=== PATIENT | male | born 1935 | race African-American/Black ===

== ENCOUNTER 2016-07-15 05:58 | Emergency (ER) | payer MEDICARE, MEDICAID ==
[~2016-07-15] VITALS: Ht 175.3 cm; Wt 95.5 kg
[~2016-07-15 05:58] MED LIST: ACET250T27 PO; ALBU8.5H IH; AMLO-511 PO; ASPI81TA42 PO; BETA10DR OU; BIMA12.5OS OU; BRIM5DRO10 OU; BRINOS OU; BUDE10.22 IH; CARI350 PO; CHL25 PO; DIAZ10 PO; HYDR-3971 PO; LEVO50 PO; LISI-662 PO; METF500T4 PO; MULT-71 PO; OMEP20 PO; PILO4OS OU; SIMV-260 PO; UMEC62.5 PUFF; [UNRECOGNIZED DRUG - CODE] TP
[2016-07-15 06:17] LABS: GLUCOSE,POINT OF CARE 129 MG/DL (70-110)
[2016-07-15] MEDS ORDERED: ACETAMINOPHEN 1000 MG/ISO-OSM 100 ML IV ONE (06:30)
[2016-07-15] MEDS ORDERED: SODIUM CHLORIDE 0.9% 1,000 ML IV ONE ×2 (06:30→08:30)
[2016-07-15 06:58] LABS: BASOPHILS % (AUTO) 0.5 % (0.0-2.0); CALCIUM, TOTAL 9.1 mg/dL (8.8-10.5); CREATININE 1.52 mg/dL (0.60-1.30); EOSINOPHILS % (AUTO) 0.5 % (1.0-6.0); HEMATOCRIT 40.4 % (41-53); HEMOGLOBIN 13.2 g/dL (13.5-17.5); LYMPHOCYTES # (AUTO) 1.2 K/uL (1.0-4.8); LYMPHOCYTES % (AUTO) 16.8 % (22.0-44.0); MEAN CORPUSCULAR HEMOGLOBIN 28.3 pg (26.0-34.0); MEAN CORPUSCULAR HGB CONC 32.6 G/dL (31.0-37.0); MEAN CORPUSCULAR VOLUME 87 fL (80-100); MONOCYTES # (AUTO) 0.6 K/uL (0.1-1.0); NEUTROPHILS # (AUTO) 5.2 K/uL (1.8-7.7); NEUTROPHILS % (AUTO) 74.2 % (40.0-70.0); PLATELET COUNT (AUTO) 181 K/uL (150-450); POTASSIUM 3.8 mmol/L (3.5-5.1); RED BLOOD CELL COUNT(AUTO) 4.66 MIL/uL (4.50-5.90)
[2016-07-15 07:03] LABS: ALBUMIN 2.9 g/dL (3.4-5.0); BILIRUBIN,TOTAL 0.8 mg/dL (0.1-1.0); TOTAL PROTEIN, SERUM 6.7 g/dL (6.4-8.2)
[2016-07-15 08:35] LABS: GLUCOSE, URINE (UA) NEGATIVE (NEGATIVE); KETONES,URINE TRACE mg/dL (NEGATIVE); LEUKOCYTE ESTERASE ,URINE TRACE (NEGATIVE); OCCULT BLOOD,URINE NEGATIVE (NEGATIVE); PROTEIN,URINE TRACE (NEGATIVE)
[2016-07-15 08:43] LABS: ADD UA MICROSCOPIC YES; APPEARANCE,URINE HAZY (CLEAR)
[2016-07-15 08:45] LABS: SQUAMOUS EPITHELIAL CELL,UR Few /LPF (None Seen)
[2016-07-15 10:25] VITALS: BP 111/67
== END 2016-07-15 10:43 | disposition home or self-care (01) ==
LOC: EMS 05:59
DX: R10.9 Unspecified abdominal pain (principal); J45.909 Unspecified asthma, uncomplicated; E11.9 Type 2 diabetes mellitus without complications; K21.9 Gastro-esophageal reflux disease without esophagitis; I10 Essential (primary) hypertension; Z79.4 Long term (current) use of insulin; Z79.82 Long term (current) use of aspirin
CPT/HCPCS: 36415; 71010; 74176; 80053; 81001; 82962; 83690; 84484; 85025; 93005; 96361; 96365; 99285; J0131; J7030

== ENCOUNTER 2017-11-08 09:02 | Day surgery (SDC) | payer MEDICARE, MEDICAID ==
[~2017-11-08] VITALS: Ht 175.3 cm; Wt 80.5 kg
[~2017-11-08 09:02] MED LIST changes: -ALBU8.5H IH; +ALBU8.5H8 IH; -HYDR-3971 PO; +HYDR-4069 PO; -METF500T4 PO; +METF500T6 PO; -MULT-71 PO; +MULT1TAB70 PO; +RINGERS SOLUTION,LACTATED 500 ML IV ONE
[2017-11-08] MEDS ORDERED: BUPIVACAINE HCL/PF 0.75% 10 ML VIAL INJ ONE (09:03)
[2017-11-08] MEDS ORDERED: TETRACAINE HCL VISCOUS 0.5% 0.6 ML OPHTHALMIC SOLUTION OS ONE (09:03)
[2017-11-08] MEDS ORDERED: RINGERS SOLUTION,LACTATED 500 ML IV ONE (09:16)
[2017-11-08 10:13] LABS: GLUCOMETER DEV NAME(LOC) SDS 5; GLUCOSE,POINT OF CARE 92 MG/DL (70-110)
== END 2017-11-08 11:50 | disposition home or self-care (01) ==
LOC: SURGERY 09:02
PROVIDERS: ATTEND Specialist
DX: E11.39 Type 2 diabetes mellitus with other diabetic ophthalmic complication (principal); H40.1123 Primary open-angle glaucoma, left eye, severe stage; J44.9 Chronic obstructive pulmonary disease, unspecified; E78.00 Pure hypercholesterolemia, unspecified; F41.9 Anxiety disorder, unspecified; F10.21 Alcohol dependence, in remission; M19.90 Unspecified osteoarthritis, unspecified site; F32.9 Major depressive disorder, single episode, unspecified; I10 Essential (primary) hypertension; F12.21 Cannabis dependence, in remission; Z79.891 Long term (current) use of opiate analgesic; Z87.891 Personal history of nicotine dependence; Z98.42 Cataract extraction status, left eye; Z98.41 Cataract extraction status, right eye; Z79.84 Long term (current) use of oral hypoglycemic drugs; Z98.890 Other specified postprocedural states; Z79.899 Other long term (current) drug therapy
CPT/HCPCS: 66710; 82962; 93005; J3490; J7120

== ENCOUNTER → 2018-10-31 | Outpatient (CLI) | payer MEDICARE, MEDICAID ==
[~2018-10-31] MED LIST changes: +ASPI81TA40 PO; -ASPI81TA42 PO; +METF-960 PO; -METF500T6 PO; -RINGERS SOLUTION,LACTATED 500 ML IV ONE
== END | disposition home or self-care (01) ==
LOC: RADMN 08:50
PROVIDERS: ATTEND Internal Medicine Pulmonary Disease
DX: I70.0 Atherosclerosis of aorta (principal); J43.9 Emphysema, unspecified
CPT/HCPCS: 71250

== ENCOUNTER 2019-07-26 13:49 | Emergency (ER) | payer MEDICARE, MEDICAID ==
[~2019-07-26] VITALS: Ht 167.6 cm; Wt 77.3 kg
[~2019-07-26 13:49] MED LIST changes: -AMLO-511 PO; +AMLO5TAB9 PO; -CARI350 PO; +CARI350T26 PO; +TRIA15CR58 TP; -[UNRECOGNIZED DRUG - CODE] TP
[2019-07-26] MEDS ORDERED: LIDOCAINE 5% TRANSDERMAL PATCH TD ONE (14:45)
[2019-07-26 16:12] VITALS: BP 116/58
== END 2019-07-26 16:23 | disposition home or self-care (01) ==
LOC: EMS 13:50
DX: M54.2 Cervicalgia (principal); M54.9 Dorsalgia, unspecified; I10 Essential (primary) hypertension; K21.9 Gastro-esophageal reflux disease without esophagitis; E11.9 Type 2 diabetes mellitus without complications; J45.909 Unspecified asthma, uncomplicated; Z79.84 Long term (current) use of oral hypoglycemic drugs; Z79.899 Other long term (current) drug therapy; V49.50XA Passenger injured in collision with unspecified motor vehicles in traffic accident, initial encounter; Y93.89 Activity, other specified; Y92.89 Other specified places as the place of occurrence of the external cause; Y99.8 Other external cause status
CPT/HCPCS: 70450

== ENCOUNTER → 2020-05-20 | Day surgery (SDC) | payer MEDICARE, MEDICAID ==
[2020-05-18 10:26] LABS: COVID AG,FIA SOURCE NASOPHARYNGEAL
[~2020-05-20] VITALS: Ht 175.3 cm; Wt 76.0 kg
[~2020-05-20] MED LIST changes: +ACETAMINOPHEN 1000 MG/ISO-OSM 100 ML IV ONE; +AMLO-257 PO; -AMLO5TAB9 PO; +BALANCED SALT 15 ML OPHTHALMIC IRRIG.SOLN ONE; +BUPIVACAINE HCL/PF 0.75% 10 ML VIAL ONE; +FentaNYL CITRATE-PF 100 MCG/2 ML VIAL IVP ONE; +LIDOCAINE/PF 1% 2 ML VIAL ONE; +LIDOCAINE/PF 2% 5 ML SYRINGE IVP ONE; +MIDAZOLAM HCL 2 MG/2 ML VIAL IVP ONE; +MULT-660 PO; -MULT1TAB70 PO; +PROPOFOL 1% 20 ML VIAL IVP ONE; +RINGERS SOLUTION,LACTATED 500 ML IV ONE
== END | disposition home or self-care (01) ==
LOC: SURGERY 06:22
PROVIDERS: ATTEND Ophthalmology
DX: E11.39 Type 2 diabetes mellitus with other diabetic ophthalmic complication (principal); H40.1120 Primary open-angle glaucoma, left eye, stage unspecified; M19.90 Unspecified osteoarthritis, unspecified site; E11.9 Type 2 diabetes mellitus without complications; I10 Essential (primary) hypertension; Z86.73 Personal history of transient ischemic attack (TIA), and cerebral infarction without residual deficits; Z95.5 Presence of coronary angioplasty implant and graft; Z20.828 Contact with and (suspected) exposure to other viral communicable diseases; Z79.899 Other long term (current) drug therapy; Z88.8 Allergy status to other drugs, medicaments and biological substances; Z98.890 Other specified postprocedural states
CPT/HCPCS: 66710; 87426; C9803; J0131; J2250; J2704; J3010; J3490 ×3; J7120